=== PATIENT | male | born 1940 | race Caucasian/White ===

== ENCOUNTER 2017-01-20 14:18 | Emergency (ER) | payer OTHER ==
[~2017-01-20] VITALS: Ht 165.1 cm; Wt 94.8 kg
[2017-01-20 15:32] LABS: HEMATOCRIT 43.1 % (38.0-50.0); MCH 31.1 PG (29.0-34.0); MCHC 32.9 G/DL (30.0-36.0); MCV 94.5 FL (86-99); RBC DIS.WIDTH-CV 12.2 % (11.8-14.6); RBC DIS.WIDTH-SD 42.5 % (39-53); RED BLOOD COUNT 4.56 M/uL (4.00-5.50); WHITE BLOOD COUNT 6.5 K/uL (4.1-10.2)
[2017-01-20 15:42] LABS: CHLORIDE 106 mEq/L (99-109); POTASSIUM 4.2 mEq/L (3.7-5.4); SODIUM 143 mEq/L (136-147)
[2017-01-20 15:45] LABS: ANION GAP 8 MEQ/L (2-14)
[2017-01-20 15:46] LABS: SERUM ETHYL ALCOHOL < 10 mg/dL
[2017-01-20 15:47] LABS: GFR ESTIMATE (CALCULATED) > 59 mL/min/
[2017-01-20 15:48] LABS: GLUCOSE 114 mg/dL (70-99); UREA NITROGEN (BUN) 14 mg/dL (9-23)
[2017-01-20 16:23] LABS: MEAN PLAT.VOLUME 12.4 uM^3 (9.0-12.4); PLAT.SUFFICIENCY DECREASED; PLATELET COUNT 146 K/uL (156-360)
[2017-01-20 16:46] LABS: AMPHETAMINE NEGATIVE (500 ng/mL); BARBITURATES NEGATIVE (200 ng/mL); BENZODIAZEPINES NEGATIVE (150 ng/mL); COCAINE NEGATIVE (150 ng/mL); INTERNAL CONTROLS VALID? YES; METHADONE NEGATIVE (200 ng/mL); METHAMPHETAMINE NEGATIVE (500 ng/mL); OPIATES (MORPHINE) NEGATIVE (100 ng/mL); OXYCODONE NEGATIVE (100 ng/mL); PHENCYCLIDINE NEGATIVE (25 ng/mL); PROPOXYPHENE NEGATIVE (300 ng/mL); THC CANNABINOIDS NEGATIVE (50 ng/mL); TRICYCLIC ANTIDEPRESSANTS NEGATIVE (300 ng/mL)
[2017-01-20 17:58] LABS: SALICYLATE < 3.0 MG/DL (15-30)
[2017-01-20 18:53] VITALS: BP 124/79
== END 2017-01-20 18:55 ==
LOC: EME 14:18
DX: G31.84 Mild cognitive impairment of uncertain or unknown etiology (principal); G30.9 Alzheimer's disease, unspecified; F03.91 Unspecified dementia, unspecified severity, with behavioral disturbance; F32.9 Major depressive disorder, single episode, unspecified; N40.0 Benign prostatic hyperplasia without lower urinary tract symptoms; I10 Essential (primary) hypertension; H40.9 Unspecified glaucoma; E78.5 Hyperlipidemia, unspecified
CPT/HCPCS: 80048; 85027; 90839; 99281; 99284; G0480

== ENCOUNTER 2017-08-13 19:00 | Inpatient (IN) | payer OTHER ==
[~2017-08-13] VITALS: Ht 167.6 cm; Wt 99.7 kg
[2017-08-13 20:10] LABS: HEMATOCRIT 41.4 % (38.0-50.0); HEMOGLOBIN 14.2 G/DL (12.5-16.6); MCH 31.4 PG (29.0-34.0); MCHC 34.3 G/DL (30.0-36.0); MCV 91.6 FL (86-99); RBC DIS.WIDTH-CV 12.1 % (11.8-14.6); RBC DIS.WIDTH-SD 40.6 % (39-53); RED BLOOD COUNT 4.52 M/uL (4.00-5.50); WHITE BLOOD COUNT 6.3 K/uL (4.1-10.2)
[2017-08-13 20:45] LABS: CHLORIDE 106 MEQ/L (99-109); CREATININE 0.9 MG/DL (0.6-1.3); GFR ESTIMATE (CALCULATED) > 59 mL/min/ (58.99-99999); GLUCOSE 250 mg/dL (70-99); POTASSIUM 3.7 MEQ/L (3.7-5.4); SODIUM 141 MEQ/L (136-147); UREA NITROGEN (BUN) 14 mg/dL (9-23)
[2017-08-13 21:18] LABS: PLAT.SUFFICIENCY ADEQUATE; PLATELET COUNT 131 K/uL (156-360)
[2017-08-13 22:22] LABS: APPEARANCE CLEAR ((CLEAR)); BILIRUBIN NEGATIVE; BLOOD NEGATIVE; COLOR YELLOW ((YELLOW)); GLUCOSE (STRIP) NEGATIVE; KETONES NEGATIVE; LEUKOCYTES NEGATIVE; NITRITE NEGATIVE; PROTEIN (STRIP) NEGATIVE; SPECIFIC GRAVITY 1.024 (1.000-1.030); UCUL ADDED? NO; UROBILINOGEN 0.2 MG/DL (0.2-1.0)
[2017-08-14 06:04] LABS: ALBUMIN 3.8 G/DL (3.2-4.8); ALKALINE PHOSPHATASE 60 IU/L (3-129); ALT (GPT) 13 IU/L (3-49); AST (GOT) 19 IU/L (2-34); DIRECT BILIRUBIN 0.1 mg/dL (0.0-0.3); SERUM ETHYL ALCOHOL < 10 mg/dL; TOTAL BILIRUBIN 0.5 MG/DL (0.0-1.0); TOTAL PROTEIN 6.5 G/DL (6.4-8.3)
[2017-08-14 06:44] LABS: AMPHETAMINE NEGATIVE (500 ng/mL); BARBITURATES NEGATIVE (200 ng/mL); BENZODIAZEPINES NEGATIVE (150 ng/mL); BUPRENORPHINE NEGATIVE (10 ng/mL); COCAINE NEGATIVE (150 ng/mL); METHADONE NEGATIVE (200 ng/mL); METHAMPHETAMINE NEGATIVE (500 ng/mL); OPIATES (MORPHINE) NEGATIVE (100 ng/mL); OXYCODONE NEGATIVE (100 ng/mL); PHENCYCLIDINE NEGATIVE (25 ng/mL); PROPOXYPHENE NEGATIVE (300 ng/mL); THC CANNABINOIDS NEGATIVE (50 ng/mL); TRICYCLIC ANTIDEPRESSANTS NEGATIVE (300 ng/mL)
[2017-08-14] MEDS ORDERED: COMBIGAN O20 DROP/5 BOTH EYES ×2 (12:39→18:41)
[2017-08-14] MEDS ORDERED: NORVASC5 MG PO (12:40)
[2017-08-14] MEDS ORDERED: CRESTOR20 MG PO (12:40)
[2017-08-14] MEDS ORDERED: VITAMIN B122500 MCG PO (12:41)
[2017-08-14] MEDS ORDERED: ARICEPT10 MG PO (12:42)
[2017-08-14] MEDS ORDERED: FLOMAX0.4 MG PO (12:42)
[2017-08-14] MEDS ORDERED: ZOLOFT50 MG PO (12:42)
[2017-08-14] MEDS ORDERED: DIOVAN HCT 11 TABLET PO (12:43)
[2017-08-14] MEDS ORDERED: NAMENDA10 MG PO (12:43)
[2017-08-14] MEDS ORDERED: THERA TEARS30 ML BOTH EYES ×2 (12:44→18:50)
[2017-08-14] MEDS ORDERED: SYSTANE BALANCE10 ML BOTH EYES (12:45)
[2017-08-14] MEDS ORDERED: SEROQUEL12.5 MG PO ×2 (12:45→18:48)
[2017-08-14] MEDS ORDERED: BUSPAR5 MG PO (12:46)
[2017-08-14] MEDS ORDERED: TYLENOL REGULA325 MG PO (12:46)
[2017-08-14 14:09] VITALS: BP 182/84
[2017-08-14 14:14] VITALS: BP 182/84
[2017-08-14 15:29] VITALS: BP 121/84
[2017-08-14] MEDS ORDERED: BESIVANCE5 ML LEFT EYE (18:49)
[2017-08-15 07:47] VITALS: BP 125/65
[2017-08-15 15:27] VITALS: BP 120/59
[2017-08-16 07:41] VITALS: BP 143/70
[2017-08-16 08:51] LABS: FOLIC ACID (FOLATE) > 22.0 NG/ML (5.0-22.0)
[2017-08-16 09:37] LABS: HEMOGLOBIN A1c (GLYCOHEMOGLOB) 6.2 % (Below 5.7)
[2017-08-16] MEDS ORDERED: THERA TEARS30 ML BOTH EYES (11:35)
[2017-08-16 16:03] VITALS: BP 116/66
[2017-08-17 08:09] VITALS: BP 161/79
[2017-08-17 16:01] VITALS: BP 133/77
[2017-08-18 07:56] VITALS: BP 140/65
[2017-08-18 15:43] VITALS: BP 118/55
[2017-08-19 07:44] VITALS: BP 149/70
[2017-08-19 15:34] VITALS: BP 100/58
[2017-08-20 07:55] VITALS: BP 138/91
[2017-08-20 15:46] VITALS: BP 117/67
[2017-08-21 07:55] VITALS: BP 138/78
[2017-08-21 11:28] VITALS: BP 130/83
[2017-08-21 16:00] VITALS: BP 149/101
[2017-08-22 07:52] VITALS: BP 57/24
[2017-08-22 08:59] VITALS: BP 137/73
[2017-08-22 15:43] VITALS: BP 139/65
[2017-08-23 07:45] VITALS: BP 176/77
[2017-08-23 15:13] VITALS: BP 108/56
[2017-08-24 08:20] VITALS: BP 103/48
[2017-08-24] MEDS ORDERED: BUSPAR5 MG PO (08:51)
== END 2017-08-24 10:14 | disposition home or self-care (01) | DRG 57 ==
LOC: EME 19:00 → EDOF 08-14 11:41 → 1WEST 08-14 11:41 → ENRESERV 08-14 14:29 → 1WEST 08-24 10:14
PROVIDERS: Emergency Medicine; Psychiatry & Neurology Psychiatry
DX: G30.9 Alzheimer's disease, unspecified (principal); F02.81 Dementia in other diseases classified elsewhere, unspecified severity, with behavioral disturbance; G30.8 Other Alzheimer's disease; F05 Delirium due to known physiological condition; F32.9 Major depressive disorder, single episode, unspecified; E78.5 Hyperlipidemia, unspecified; H40.9 Unspecified glaucoma; I10 Essential (primary) hypertension; N40.0 Benign prostatic hyperplasia without lower urinary tract symptoms; R32 Unspecified urinary incontinence; Z87.440 Personal history of urinary (tract) infections; R45.851 Suicidal ideations; H91.90 Unspecified hearing loss, unspecified ear
CPT/HCPCS: 71046; 80048; 80076; 81003; 82140; 82607; 82746; 83036; 84443; 85027; 90837; 97150 GO; 97165 GO; 99281; 99284; G0480

== ENCOUNTER 2017-10-04 04:46 | Emergency (ER) | payer OTHER ==
[~2017-10-04] VITALS: Ht 175.3 cm; Wt 102.0 kg
[~2017-10-04 04:46] MED LIST: ARICEPT10 MG PO; BESIVANCE5 ML LEFT EYE; BUSPAR5 MG PO; COMBIGAN O20 DROP/5 BOTH EYES; CRESTOR20 MG PO; DIOVAN HCT 11 TABLET PO; FLOMAX0.4 MG PO; NAMENDA10 MG PO; NORVASC5 MG PO; SEROQUEL12.5 MG PO; SYSTANE BALANCE10 ML BOTH EYES; THERA TEARS30 ML BOTH EYES; TYLENOL REGULA325 MG PO; VITAMIN B122500 MCG PO; ZOLOFT50 MG PO
[2017-10-04 09:32] VITALS: BP 160/82
== END 2017-10-04 09:35 | disposition home or self-care (01) ==
LOC: EME 04:46
PROC: 0CQ0XZZ Repair Upper Lip, External Approach (ICD-10-PCS; principal; 2017-10-04)
DX: S01.511A Laceration without foreign body of lip, initial encounter (principal); W06.XXXA Fall from bed, initial encounter; F03.90 Unspecified dementia, unspecified severity, without behavioral disturbance, psychotic disturbance, mood disturbance, and anxiety; I10 Essential (primary) hypertension; E78.5 Hyperlipidemia, unspecified; N40.0 Benign prostatic hyperplasia without lower urinary tract symptoms; F32.9 Major depressive disorder, single episode, unspecified; Z87.891 Personal history of nicotine dependence
CPT/HCPCS: 70450; 72125; 99281; 99284

== ENCOUNTER 2017-10-24 09:43 | Inpatient (IN) | payer OTHER ==
[~2017-10-24] VITALS: Ht 165.1 cm; Wt 96.1 kg
[~2017-10-24 09:43] MED LIST changes: +ZOLOFT100 MG PO; -ZOLOFT50 MG PO
[2017-10-24 11:01] LABS: BASOPHIL (%) 0.6 % (0-1); EOSINOPHIL (%) 1.5 % (0-5); EOSINOPHIL COUNT 0.1 K/uL (0-0.3); HEMATOCRIT 41.3 % (38.0-50.0); HEMOGLOBIN 14.1 G/DL (12.5-16.6); IMMATURE GRANULOCYTE (%) 0.4 % (0.0-0.7); LYMPHOCYTE (%) 16.9 % (15-42); LYMPHOCYTE COUNT 0.9 K/uL (1.0-2.8); MCH 31.5 PG (29.0-34.0); MCHC 34.1 G/DL (30.0-36.0); MCV 92.2 FL (86-99); MONOCYTE (%) 20.3 % (3-12); MONOCYTE COUNT 1.1 K/uL (0-0.8); NEUTROPHIL (%) 60.3 % (45-76); NEUTROPHIL COUNT 3.2 K/uL (1.8-6.4); PLATELET COUNT 132 K/uL (156-360); RBC DIS.WIDTH-CV 12.2 % (11.8-14.6); RBC DIS.WIDTH-SD 40.7 % (39-53); RED BLOOD COUNT 4.48 M/uL (4.00-5.50); WHITE BLOOD COUNT 5.3 K/uL (4.1-10.2)
[2017-10-24 11:10] LABS: CHLORIDE 105 mEq/L (99-109); SODIUM 141 mEq/L (136-147)
[2017-10-24 11:11] LABS: GLUCOSE 131 mg/dL (70-99)
[2017-10-24 11:15] LABS: CREATININE 0.9 mg/dL (0.6-1.3); GFR ESTIMATE (CALCULATED) > 59 mL/min/ (58.99-99999); SERUM ETHYL ALCOHOL < 10 mg/dL
[2017-10-24 11:16] LABS: UREA NITROGEN (BUN) 9 mg/dL (9-23)
[2017-10-24 12:28] LABS: APPEARANCE CLEAR ((CLEAR)); BILIRUBIN NEGATIVE; BLOOD NEGATIVE; COLOR YELLOW ((YELLOW)); GLUCOSE (STRIP) NEGATIVE; KETONES NEGATIVE; LEUKOCYTES NEGATIVE; NITRITE NEGATIVE; PROTEIN (STRIP) NEGATIVE; SPECIFIC GRAVITY 1.015 (1.000-1.030)
[2017-10-24 12:46] LABS: AMPHETAMINE NEGATIVE (500 ng/mL); BENZODIAZEPINES NEGATIVE (150 ng/mL); COCAINE NEGATIVE (150 ng/mL); METHAMPHETAMINE NEGATIVE (500 ng/mL); OPIATES (MORPHINE) NEGATIVE (100 ng/mL); PHENCYCLIDINE NEGATIVE (25 ng/mL); THC CANNABINOIDS NEGATIVE (50 ng/mL); TRICYCLIC ANTIDEPRESSANTS NEGATIVE (300 ng/mL)
[2017-10-24 12:49] LABS: BARBITURATES NEGATIVE (200 ng/mL); BUPRENORPHINE NEGATIVE (10 ng/mL); METHADONE NEGATIVE (200 ng/mL); OXYCODONE NEGATIVE (100 ng/mL); PROPOXYPHENE NEGATIVE (300 ng/mL)
[2017-10-24] MEDS ORDERED: POTASSIUM CHLO20 ME2 PO (16:21)
[2017-10-24 22:52] VITALS: BP 164/88
[2017-10-25 03:34] VITALS: BP 99/74
[2017-10-25 07:22] VITALS: BP 106/86
[2017-10-25 11:54] VITALS: BP 139/93
[2017-10-25 15:49] VITALS: BP 135/86
[2017-10-25 23:22] VITALS: BP 114/83
[2017-10-26 07:29] VITALS: BP 133/79
[2017-10-26 15:18] VITALS: BP 93/55
[2017-10-26 21:00] VITALS: BP 125/78
[2017-10-26 22:44] VITALS: BP 110/96
[2017-10-27 04:00] VITALS: BP 132/78
[2017-10-27 07:55] LABS: ALBUMIN 3.8 G/DL (3.2-4.8); ALKALINE PHOSPHATASE 72 IU/L (3-129); ALT (GPT) 12 IU/L (3-49); AST (GOT) 19 IU/L (2-34); CHLORIDE 99 MEQ/L (99-109); GFR ESTIMATE (CALCULATED) 25 mL/min/ (58.99-99999); GLUCOSE 105 mg/dL (70-99); POTASSIUM 3.9 MEQ/L (3.7-5.4); SODIUM 138 MEQ/L (136-147); TOTAL BILIRUBIN 0.8 MG/DL (0.0-1.0)
[2017-10-27 07:57] LABS: CREATININE 2.6 MG/DL (0.6-1.3); UREA NITROGEN (BUN) 26 mg/dL (9-23)
[2017-10-27 08:44] VITALS: BP 123/69
[2017-10-27 15:55] LABS: CHLORIDE 104 mEq/L (99-109); POTASSIUM 3.7 mEq/L (3.7-5.4); SODIUM 141 mEq/L (136-147)
[2017-10-27 15:56] LABS: GLUCOSE 121 mg/dL (70-99)
[2017-10-27 16:00] LABS: GFR ESTIMATE (CALCULATED) 33 mL/min/ (58.99-99999)
[2017-10-27 16:01] LABS: UREA NITROGEN (BUN) 26 mg/dL (9-23)
[2017-10-27 16:02] VITALS: BP 123/67
[2017-10-27 16:02] LABS: CREATININE 2.1 mg/dL (0.6-1.3)
[2017-10-27 23:40] VITALS: BP 116/69
[2017-10-28 11:04] LABS: CHLORIDE 101 MEQ/L (99-109); CREATINE KINASE 213 IU/L (1-294); GFR ESTIMATE (CALCULATED) 34 mL/min/ (58.99-99999); POTASSIUM 3.8 MEQ/L (3.7-5.4); SODIUM 141 MEQ/L (136-147); UREA NITROGEN (BUN) 29 mg/dL (9-23)
[2017-10-28 11:05] LABS: GLUCOSE 202 mg/dL (70-99)
[2017-10-28 11:45] VITALS: BP 127/58
[2017-10-28 23:33] VITALS: BP 138/89
[2017-10-29 07:00] LABS: ALBUMIN 3.1 G/DL (3.2-4.8); CHLORIDE 106 MEQ/L (99-109); GFR ESTIMATE (CALCULATED) > 59 mL/min/ (58.99-99999); PHOSPHORUS 3.8 mg/dL (2.5-4.9); POTASSIUM 3.4 MEQ/L (3.7-5.4); SODIUM 141 MEQ/L (136-147); UREA NITROGEN (BUN) 26 mg/dL (9-23)
[2017-10-29 07:01] LABS: CREATININE 1.1 MG/DL (0.6-1.3); GLUCOSE 105 mg/dL (70-99)
[2017-10-29 07:11] VITALS: BP 118/83
[2017-10-29 15:43] VITALS: BP 115/65
[2017-10-30 02:08] VITALS: BP 151/74
[2017-10-30 07:54] VITALS: BP 128/77
[2017-10-30 09:13] LABS: ALBUMIN 3.4 G/DL (3.2-4.8); CHLORIDE 106 MEQ/L (99-109); CREATININE 0.9 MG/DL (0.6-1.3); GFR ESTIMATE (CALCULATED) > 59 mL/min/ (58.99-99999); GLUCOSE 113 mg/dL (70-99); PHOSPHORUS 3.1 mg/dL (2.5-4.9); POTASSIUM 3.5 MEQ/L (3.7-5.4); SODIUM 142 MEQ/L (136-147); UREA NITROGEN (BUN) 13 mg/dL (9-23)
[2017-10-30 16:39] VITALS: BP 130/65
[2017-10-30 23:07] VITALS: BP 148/67
[2017-10-31 07:23] VITALS: BP 142/61
[2017-10-31 10:13] LABS: ALBUMIN 3.4 G/DL (3.2-4.8); CHLORIDE 107 MEQ/L (99-109); CREATININE 0.9 MG/DL (0.6-1.3); GFR ESTIMATE (CALCULATED) > 59 mL/min/ (58.99-99999); GLUCOSE 109 mg/dL (70-99); POTASSIUM 3.5 MEQ/L (3.7-5.4); SODIUM 142 MEQ/L (136-147); UREA NITROGEN (BUN) 13 mg/dL (9-23)
[2017-10-31 15:05] VITALS: BP 138/68
[2017-10-31 23:15] VITALS: BP 164/76
[2017-11-01 08:23] VITALS: BP 126/86
[2017-11-01 16:28] VITALS: BP 148/75
[2017-11-01 23:40] VITALS: BP 122/81
[2017-11-02 08:00] VITALS: BP 111/61
[2017-11-02 16:08] VITALS: BP 130/64
[2017-11-03 00:27] VITALS: BP 156/82
[2017-11-03 07:34] VITALS: BP 166/72
[2017-11-03 16:04] VITALS: BP 143/66
[2017-11-03 23:37] VITALS: BP 167/76
[2017-11-04 08:17] VITALS: BP 180/79
[2017-11-04 16:31] VITALS: BP 140/80
[2017-11-04 23:33] VITALS: BP 116/74
[2017-11-05 23:30] VITALS: BP 155/81
[2017-11-06 08:02] VITALS: BP 132/71
[2017-11-06 16:11] VITALS: BP 126/71
[2017-11-06 23:20] VITALS: BP 132/77
[2017-11-07 08:00] VITALS: BP 145/72
[2017-11-08 15:36] VITALS: BP 127/73
[2017-11-09 08:20] VITALS: BP 141/72
[2017-11-09 16:23] VITALS: BP 155/80
[2017-11-09 21:18] VITALS: BP 187/91
[2017-11-09 23:37] VITALS: BP 164/94; BP 166/94
[2017-11-10 07:54] VITALS: BP 166/88
[2017-11-10 15:59] VITALS: BP 149/76
[2017-11-10 23:19] VITALS: BP 127/86
[2017-11-11 07:07] VITALS: BP 108/58
[2017-11-11 15:18] VITALS: BP 105/59
[2017-11-11 23:39] VITALS: BP 139/80
[2017-11-12 07:47] VITALS: BP 104/54
[2017-11-12 16:11] VITALS: BP 141/61
[2017-11-12 23:35] VITALS: BP 131/80
[2017-11-13 07:44] VITALS: BP 154/80
[2017-11-14 08:06] VITALS: BP 106/58
[2017-11-14 15:30] VITALS: BP 127/64
[2017-11-14 23:24] VITALS: BP 160/88
[2017-11-15 07:23] VITALS: BP 138/76
[2017-11-15 07:53] LABS: CHLORIDE 105 MEQ/L (99-109); CREATININE 0.9 MG/DL (0.6-1.3); GFR ESTIMATE (CALCULATED) > 59 mL/min/ (58.99-99999); GLUCOSE 92 mg/dL (70-99); POTASSIUM 3.8 MEQ/L (3.7-5.4); SODIUM 141 MEQ/L (136-147); UREA NITROGEN (BUN) 13 mg/dL (9-23)
[2017-11-15 11:14] VITALS: BP 96/64
[2017-11-15 15:52] VITALS: BP 120/67
[2017-11-15 23:56] VITALS: BP 125/71
[2017-11-16 07:49] VITALS: BP 126/62
[2017-11-16 16:23] VITALS: BP 12/58
[2017-11-16 23:49] VITALS: BP 180/86
[2017-11-17 15:44] VITALS: BP 160/80
[2017-11-17 23:44] VITALS: BP 125/64
[2017-11-18 07:59] VITALS: BP 129/60
[2017-11-18 15:31] VITALS: BP 121/68
[2017-11-18 23:23] VITALS: BP 129/66
[2017-11-19 07:21] VITALS: BP 154/69
[2017-11-19 15:21] VITALS: BP 129/70
[2017-11-19 23:05] VITALS: BP 181/84
[2017-11-20 07:29] VITALS: BP 126/78
[2017-11-20] MEDS ORDERED: NIFEDIPINE ER60 MG PO (11:37)
[2017-11-20] MEDS ORDERED: QUETIAPINE FUM100 MG PO (11:37)
[2017-11-20] MEDS ORDERED: POLYETHYLENE GL17 GM PO (11:37)
[2017-11-20] MEDS ORDERED: METOPROLOL SUCC25 MG PO (11:37)
[2017-11-20] MEDS ORDERED: QUETIAPINE FUMA50 MG PO (11:37)
== END 2017-11-20 14:09 | DRG 57 ==
LOC: EME 09:43 → 3EAST 17:12 → EDOF 17:12 → CANRESERV 17:59 → ENRESERV 17:59 → CANRESERV 18:49 → ENRESERV 18:49 → 3EAST 22:10
PROVIDERS: Emergency Medicine; Internal Medicine; Internal Medicine Nephrology
DX: G30.9 Alzheimer's disease, unspecified (principal); F02.81 Dementia in other diseases classified elsewhere, unspecified severity, with behavioral disturbance; N17.9 Acute kidney failure, unspecified; F05 Delirium due to known physiological condition; I10 Essential (primary) hypertension; E78.5 Hyperlipidemia, unspecified; N40.0 Benign prostatic hyperplasia without lower urinary tract symptoms; H40.9 Unspecified glaucoma; T50.2X5A Adverse effect of carbonic-anhydrase inhibitors, benzothiadiazides and other diuretics, initial encounter; F01.50 Vascular dementia, unspecified severity, without behavioral disturbance, psychotic disturbance, mood disturbance, and anxiety; F32.9 Major depressive disorder, single episode, unspecified; M19.90 Unspecified osteoarthritis, unspecified site; R45.1 Restlessness and agitation; E86.0 Dehydration; E66.9 Obesity, unspecified; Z68.35 Body mass index [BMI] 35.0-35.9, adult; M47.812 Spondylosis without myelopathy or radiculopathy, cervical region; F39 Unspecified mood [affective] disorder
CPT/HCPCS: 71045; 76770; 80048; 80048 91; 80053; 80069; 81003; 82550; 85025; 90837; 93005; 99281; 99285; G0480; J1630; J1644; J2060; J7030